=== PATIENT | female | born 1940 | race Caucasian/White ===

== ENCOUNTER → 2016-09-21 | Outpatient (CLI) | payer OTHER ==
[~2016-09-21] MED LIST: BENADRYL25 M3 PO; BP PILL; CALCIUM PO; FAMOTIDINE20 MG PO; K-TAB ER20 MEQ PO; LASIX20 MG PO; LOVENOX100 MG/1 M SUBQ; METOPROLOL SUCC25 MG PO; MULTIVITAMIN1 UDCAP PO; NABUMETONE; NEXIUM; NORVASC2.5 MG PO; OMEPRAZOLE40 M1 PO; PAROXETINE HCL10 MG PO; PAROXETINE HCL20 M1 PO; PAXIL; PRAVASTATIN SOD20 MG PO; TRIAMTERENE-HC1 EACH PO; VITAMIN D34000 UNIT PO; XARELTO15 MG PO; ZYRTEC
--- NOTE | ~2016-09-21 | HP ---
Unit #: [id number] #: [id number] Patient: MADIHA RAMIREZ [id number] [facility] [address] [place], [place] [address] [id number] O MR#: [id number] NAME: MADIHA RAMIREZ ROOM: Age: 76 Sex: F Admission Date: 09/21/2016 : 1940 Attending Physician: Gerson Buckner M.D. Primary Care Physician: Aaliyah Garcia M.D. HISTORY AND PHYSICAL REASON FOR CONSULTATION Preoperative evaluation. HISTORY OF PRESENT ILLNESS The patient is a 76-year-old female with a past medical history of hypertension, hyperlipidemia, paroxysmal atrial fibrillation, chronic anticoagulation, chronic kidney disease, borderline diabetes, depression, GERD, back pain, melanoma, arthritis, who is being seen in the preoperative area for the above. The patient states that she has had right knee pain for more than five years. She states that it has been gradual in onset. She has had injections as well as physical therapy that is no longer helping. 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 She is scheduled for right total knee arthroplasty on October 05, 2016. Regarding the patient's chronic medical conditions, she does have paroxysmal atrial fibrillation and is on chronic anticoagulation with Xarelto. She was seen by Dr. Jauregui on August 24, 2016, for cardiac clearance. Please see his dictated note. He also, per my conversation with the patient, told her to stop taking Xarelto on September 29. She will then transition to Lovenox. The patient is also seeing Dr. Jones for possible obstructive sleep apnea. She is scheduled for a sleep study on September 26. Regarding the patient's other chronic medical conditions, she states that she has been taking her medications as prescribed. She does have chronic kidney disease, stage 3, and sees Dr. Drake. PAST MEDICAL HISTORY 1. Admission to [facility] November 10 through the 2015 for left total knee arthroplasty. She developed atrial fibrillation with rapid ventricular response postoperatively. Additionally, she had low oxygen saturation with sleeping. She was seen by both cardiology and pulmonary during that admission. 2. Paroxysmal atrial fibrillation on chronic anticoagulation with Xarelto, followed by Dr. Jauregui. 3. Hypertension. 4. Hyperlipidemia. 5. Osteoarthritis. 6. Obesity with a BMI of 42. 7. "Borderline diabetes." The patient does not take any medication. Unit #: [id number] #: [id number] Patient: MADIHA RAMIREZ She doesn't routinely check her blood sugars. 8. Depression. 9. GERD. 10. Chronic low back pain. 11. Melanoma of the upper extremities, status post excision. 12. Chronic kidney disease, stage 3, followed by Dr. Drake. 13. Possible obstructive sleep apnea. PAST SURGICAL HISTORY 1. Cholecystectomy. 2. Parathyroid surgery. 3. Left total knee arthroplasty. 4. Hernia repair. SOCIAL HISTORY The patient quit smoking in 1967. She states that she smoked for about four years. She currently lives with her . She reports occasional alcohol use. She volunteers at a school. She typically walks without assistance. FAMILY HISTORY Notable for her mother dying at the age of 82. Her dad at the age of 75 of lung cancer. ALLERGIES Oxycodone, Relafen. HOME MEDICATIONS 1. Paroxetine 10 mg daily. 2. Pravastatin 20 mg daily. 3. Benadryl 25 mg q.8 hours. 4. Famotidine 20 mg daily. 5. Xarelto 15 mg daily. 6. Lasix 20 mg daily. 7. Potassium 20 mEq daily. 8. Metoprolol 12.5 mg daily. 9. Norvasc 2.5 mg daily. REVIEW OF SYSTEMS A complete review of systems is negative except as indicated in the HPI. The patient states that she does have dyspnea on exertion when walking up the stairs. This has been going on for about one to two years. She also reports paroxysmal nocturnal dyspnea again for the past two to three years. She denies any orthopnea. No change in her weight. She does have lower extremity swelling. It is not a new problem. Per cardiology consultation note from November 11, 2015, the patient had a stress test on January 03, 2014, at [facility] with a normal ejection fraction of 58%. There was also a 2D echocardiogram January 03, 2014, again at [facility] office showing ejection fraction of 55% to 60% with trace mitral regurgitation and mild tricuspid regurgitation. DIAGNOSTIC STUDIES CARDIOVASCULAR: EKG from August 24, 2016, showed sinus bradycardia with a rate of 50 beats/minute. LABORATORY: Complete blood count notable for hemoglobin and hematocrit of 11.7 and 37.1 respectively. INR is 1.3. Unit #: [id number] #: [id number] Patient: MADIHA RAMIREZ Comprehensive metabolic panel notable for BUN and creatinine of 35 and 1.4 respectively, alkaline phosphatase is 112, albumin is 3.3. Urinalysis is essentially negative. PHYSICAL EXAMINATION VITAL SIGNS: Temperature is 97.6, pulse 50, respirations 16, blood pressure 147/87. Oxygen saturation 94% on room air. GENERAL: The patient is a very pleasant female who is awake and alert, in no acute distress. HEENT: The head is atraumatic. Mucous membranes are moist. NECK: Supple. Trachea is midline. CARDIOVASCULAR: Regular rate and rhythm. LUNGS: Clear to auscultation bilaterally with no increased work of breathing. ABDOMEN: Soft, nontender, with bowel sounds present in all four quadrants. EXTREMITIES: Trace edema. NEURO: The patient is awake and alert. She follows commands. PSYCH: Mood and affect are normal. The patient is cooperative. SKIN: Skin of examined areas is warm and dry. ASSESSMENT The patient is a 76-year-old female with: 1. Preoperative evaluation for right total knee arthroplasty. 2. Hypertension. 3. Hyperlipidemia. 4. Paroxysmal atrial fibrillation, on chronic anticoagulation with Xarelto. 5. Chronic kidney disease, stage 3, followed by Dr. Drake. 6. Borderline diabetes. 7. Depression. 8. Gastroesophageal reflux disease. 9. Low back pain. 10. History of melanoma, status post excision. 11. Obesity with a BMI of 42. 12. Increased risk of obstructive sleep apnea, scheduled for sleep study this month. 13. Sinus bradycardia. 14. Former smoker. PLAN 1. Regarding preoperative evaluation, the patient's revised Prasad Cardiac Risk Index is low based on the information available. She has seen cardiology and has been cleared. Of note, the patient's EKG showed sinus bradycardia with a rate of 50 beats/minute. That was at Dr. Jauregui' office. She has danny cleared from his standpoint. She was advised to discontinue Xarelto on September 29 and will then will on Lovenox. Additionally, pulmonary clearance is pending from Dr. Jones. She is scheduled for a sleep study. 2. Regarding chronic kidney disease, the patient sees Dr. Drake. She appears to be around her baseline creatinine of 1.4, stage. 3. Borderline diabetes: I have ordered a hemoglobin A1c. The patient may need low dose sliding scale insulin with Accu-Cheks postoperatively. 4. Regarding increased risk of obstructive sleep apnea, the patient does have a sleep study scheduled. I have also ordered obstructive sleep apnea protocol postoperatively. Unit #: [id number] #: [id number] Patient: MADIHA RAMIREZ Thank you very much for the consultation. Dictated by Emily Curry M.D. DIANNE/venita TD: 09/21/2016 12:13 JOB #: [id number] HISTORY AND PHYSICAL Page 1 of 1 X Emily Curry MD X HISTORY AND PHYSICAL
--- NOTE | ~2016-09-21 | CR63 ---
[facility] A Service of [facility] & [facility] RADIOLOGY TEXT RESULTS PATIENT: MADIHA RAMIREZ LOCATION: [facility] : 42 UNIT #: [id number] AGE: [address]: Gerson Buckner MD SEX: F ORDER DR: [id number] [facility] [address] [place], [place] [address] [id number] O MR#: [id number] Acc #: [id number] NAME: MADIHA RAMIREZ : 1940 SEX: F STUDY DATE/TIME: 09/21/2016 9:55 UNIT: [facility] ROOM: STUDY DESCRIPTION: CR Chest 2 View Attending Physician: Gerson Buckner M.D. Ordering Physician: Gerson Buckner M.D. Primary Care Physician: Aaliyah Garcia M.D. MEDICAL IMAGING REPORT This report is preliminary unless electronic signature is present EXAM Chest, 09/21/2016, [facility]. HISTORY 76-year-old woman preop clearance for right total knee arthroplasty. Osteoarthritis right knee. COMPARISON Chest, 11/14/2015. TECHNIQUE Two-view chest demonstrates mild cardiomegaly and aortic ectasia. Hilar structures are preserved. Bilateral lungs are expanded and clear. IMPRESSION Mild stable cardiomegaly and aortic ectasia. No acute chest finding. Dictated by... Domo Panchal M.D. THIS IS AN ELECTRONICALLY VERIFIED REPORT Domo Panchal M.D. at 09/23/2016 8:10 AM RUDOLPH/elvis TD: 09/21/2016 10:18 JOB #: [id number] MEDICAL IMAGING REPORT Page 1 of 1 COPY
[2016-09-21 08:38] LABS: HEMATOCRIT 37.1 % (35.0-45.0); HEMOGLOBIN 11.7 gm/dL (12.0-16.0); MEAN CELL VOLUME 95.7 FL (83-96); MEAN CORPUSCULAR HEMOGLOBIN 30.2 PG (28-34); MEAN CORPUSCULAR HGB CONC 31.6 g/dL (30-36); MEAN PLATELET VOLUME 9.2 FL (6.5-11.5); RED BLOOD COUNT 3.88 X10e (3.90-5.30); RED CELL DISTRIBUTION WIDTH 13.8 % (11.0-15.5); WHITE BLOOD COUNT 4.2 X10e3 (4.0-10.5)
[2016-09-21 08:53] LABS: INR 1.3; PROTHROMBIN TIME (PATIENT) 13.6 SECONDS (9.6-11.5)
[2016-09-21 09:18] LABS: ALBUMIN SERUM 3.3 g/dL (3.5-5.0); BILIRUBIN,TOTAL 0.7 mg/dL (0.2-2.0); CALCIUM SERUM 9.9 mg/dL (8.4-10.2); CREATININE SERUM 1.4 mg/dL (0.6-1.4); GLOM FILT RATE Estimated 36.9 mL/min (>60); POTASSIUM 4.1 mmol/L (3.5-5.1); PROTEIN TOTAL SERUM 6.8 g/dL (6.0-8.3)
[2016-09-21 10:37] LABS: URINE APPEARANCE CLEAR; URINE BILIRUBIN NEG (NEG); URINE BLOOD NEG (NEG); URINE COLOR YELLOW; URINE GLUCOSE NEG (NEG); URINE KETONE NEG (NEG); URINE LEUKOCYTE ESTERASE NEG (NEG); URINE NITRATE NEG (NEG); URINE PROTEIN NEG (NEG); URINE SPECIFIC GRAVITY 1.008 (1.003-1.035); URINE UROBILINOGEN 0.2 MG/DL (NEG)
[2016-09-21 10:43] LABS: URINE SOURCE CLEAN CATCH
[2016-09-21 10:54] LABS: CULTURE INDICATED? NO
== END | disposition home or self-care (01) ==
LOC: CAMB 07:37
PROVIDERS: Orthopaedic Surgery
DX: Z01.818 Encounter for other preprocedural examination (principal); M17.11 Unilateral primary osteoarthritis, right knee; I12.9 Hypertensive chronic kidney disease with stage 1 through stage 4 chronic kidney disease, or unspecified chronic kidney disease; N18.3 Chronic kidney disease, stage 3 (moderate); E78.5 Hyperlipidemia, unspecified; I48.0 Paroxysmal atrial fibrillation; R73.03 Prediabetes; F32.9 Major depressive disorder, single episode, unspecified; K21.9 Gastro-esophageal reflux disease without esophagitis; E66.9 Obesity, unspecified; G47.33 Obstructive sleep apnea (adult) (pediatric); R00.1 Bradycardia, unspecified; I51.7 Cardiomegaly; Z87.81 Personal history of (healed) traumatic fracture; I77.819 Aortic ectasia, unspecified site
CPT/HCPCS: 36415; 71020; 80053; 81003; 83036; 85027; 85610; 86850; 86900; 86901; 87070

== ENCOUNTER → 2016-10-28 | Outpatient (CLI) | payer OTHER ==
[2016-10-28 08:26] LABS: HEMATOCRIT 36.5 % (35.0-45.0); HEMOGLOBIN 11.6 gm/dL (12.0-16.0); MEAN CORPUSCULAR HEMOGLOBIN 30.3 PG (28-34); MEAN CORPUSCULAR HGB CONC 31.8 g/dL (30-36); MEAN PLATELET VOLUME 8.8 FL (6.5-11.5); RED BLOOD COUNT 3.84 X10e (3.90-5.30); RED CELL DISTRIBUTION WIDTH 13.7 % (11.0-15.5)
[2016-10-28 08:30] LABS: URINE APPEARANCE CLEAR; URINE BILIRUBIN NEG (NEG); URINE BLOOD NEG (NEG); URINE COLOR YELLOW; URINE GLUCOSE NEG (NEG); URINE KETONE NEG (NEG); URINE LEUKOCYTE ESTERASE 1+ (NEG); URINE NITRATE NEG (NEG); URINE PROTEIN NEG (NEG); URINE SPECIFIC GRAVITY 1.014 (1.003-1.035); URINE UROBILINOGEN 0.2 MG/DL (NEG)
[2016-10-28 08:32] LABS: CULTURE INDICATED? YES; URBCS1 AUWI 0-2 /[HPF] (0-2); URINE BACTERIA AUWI 1+ (NEGATIVE); URINE SQUAMOUS EPITHELIAL CELL FEW /[HPF]
[2016-10-28 08:42] LABS: INR 1.2; PROTHROMBIN TIME (PATIENT) 13.3 SECONDS (10.0-11.7)
[2016-10-28 09:29] LABS: ALBUMIN SERUM 3.3 g/dL (3.5-5.0); BILIRUBIN,TOTAL 0.7 mg/dL (0.2-2.0); BUN/CREATININE RATIO 25.33; CREATININE SERUM 1.5 mg/dL (0.6-1.4); POTASSIUM 4.2 mmol/L (3.5-5.1); PROTEIN TOTAL SERUM 6.8 g/dL (6.0-8.3)
== END | disposition home or self-care (01) ==
LOC: CAMB 10-21 08:00
PROVIDERS: Orthopaedic Surgery
DX: Z01.812 Encounter for preprocedural laboratory examination (principal); M17.11 Unilateral primary osteoarthritis, right knee; E11.9 Type 2 diabetes mellitus without complications; I10 Essential (primary) hypertension; K21.9 Gastro-esophageal reflux disease without esophagitis; I48.91 Unspecified atrial fibrillation; G47.30 Sleep apnea, unspecified; E78.5 Hyperlipidemia, unspecified; N18.9 Chronic kidney disease, unspecified; C43.9 Malignant melanoma of skin, unspecified
CPT/HCPCS: 36415; 80053; 81003; 83036; 85027; 85610; 86850; 86900; 86901; 87070; 87086

== ENCOUNTER 2016-11-02 07:01 | Inpatient (IN) | payer OTHER ==
--- NOTE | ~2016-11-02 | CO ---
Unit #: [id number] #: [id number] Patient: MADIHA RAMIREZ [id number] [facility] [address] [place], [place] [address] [id number] I MR#: [id number] NAME: MADIHA RAMIREZ ROOM: 459 Age: 76 Sex: F Admission Date: 11/02/2016 : 1940 Attending Physician: Gerson Buckner M.D. Primary Care Physician: Aaliyah Garcia M.D. Consultation Date: 11/04/2016 CONSULTATION REPORT REASON FOR CONSULTATION Atrial fibrillation. HISTORY OF PRESENT ILLNESS This is a 76-year-old white male known to Dr. Neftali Jauregui, with a past medical history of hypertension, hyperlipidemia, prediabetes, obesity, obstructive sleep apnea, recently placed on CPAP and osteoarthritis. The patient was seen at [facility] in 11/2015 after a left total knee replacement. She developed new onset atrial fibrillation after surgery, but converted to sinus rhythm with medications. She was discharged with Coumadin, but was then changed to Xarelto. Two-dimensional echocardiogram was completed at that time and revealed an ejection fraction of 50% with mild mitral and tricuspid regurgitation. She previously had a normal stress test on 01/03/2017. She presented to the hospital on 11/02/2016 for an elective right total knee replacement due to osteoarthritis. She underwent the procedure with no complications. She was transferred to the surgical floor. She was in sinus rhythm, but then went into atrial fibrillation with a rapid ventricular response. She was placed on an amiodarone drip and she converted to sinus rhythm. She does have a history of parathyroid gland removal with some mildly abnormal TSH levels. Her amiodarone was discontinued. Cardiology was consulted for further evaluation. The patient denies any dizziness, palpitations or syncope. There are no reports of chest pain or shortness of breath. She has had some chronic lower extremity edema, which she contributes to her chronic kidney disease. She is on Lasix at home. She is currently resting comfortably on exam. Telemetry currently reveals sinus rhythm. PAST MEDICAL HISTORY 1. Previous admission to [facility] 11/2015 for a left total knee replacement, new onset atrial fibrillation with conversion to sinus rhythm with medications, and hypoxia thought to be related to obstructive sleep apnea. 2. Two-dimensional echocardiogram 11/14/2015 was a technically difficult study. Ejection fraction was 50%. Mild septal hypokinesis. Mildly dilated left atrium. Mild mitral and tricuspid regurgitation. Right ventricular systolic pressure 33 mCi. 3. Normal stress test 01/03/2014. 4. Paroxysmal atrial fibrillation as noted above. On chronic anticoagulation with Xarelto. 5. Hypertension. 6. Hyperlipidemia. 7. Prediabetes. Unit #: [id number] #: [id number] Patient: MADIHA RAMIREZ 8. Chronic kidney disease stage 3. 9. Gastroesophageal reflux disease. 10. Osteoarthritis. 11. Depression. 12. Reformed tobacco abuse. PAST SURGICAL HISTORY 1. Cholecystectomy. 2. Parathyroid gland excision. 3. Left total knee replacement. SOCIAL HISTORY The patient lives in a private residence with her . She quit smoking in 1967. She drinks alcohol on rare occasions. There are no reports of illicit drug use. FAMILY HISTORY Negative for coronary artery disease. ALLERGIES Oxycodone, nabumetone. HOME MEDICATIONS 1. Pravastatin 20 mg at bedtime. 2. Benadryl 25 mg p.o. q.8 h. p.r.n. allergies. 3. Pepcid 20 mg p.o. daily. 4. Xarelto 15 mg p.o. at bedtime. 5. Lasix 20 mg p.o. daily. 6. Potassium chloride 20 mEq p.o. daily. 7. Toprol succinate 12.5 mg p.o. daily. 8. Norvasc 2.5 mg p.o. daily. 9. Paroxetine 10 mg p.o. daily. 10. Lovenox sub cutaneous daily. Per medication reconciliation 11/02/2016. REVIEW OF SYSTEMS Ten point review of systems is negative except for details as noted above in history of present illness. PHYSICAL EXAMINATION GENERAL: This is a 76-year-old white female in no acute distress. VITALS: Temperature 98.4, pulse 61, blood pressure 135/66. SKIN: Warm and dry. NECK: Supple. No jugular vein distension. No hepatojugular reflux. No carotid upstrokes. No carotid bruits auscultated. LUNGS: Bilateral breath sounds. Good air entry throughout all lung fernando. Respirations even and unlabored. No rales, rhonchi or wheezes. HEART: S1 and S2. Regular rate and rhythm. No murmurs, rubs or gallops. ABDOMEN: Soft, nontender and nondistended. Positive bowel sounds auscultated four quadrants. No ascites noted. EXTREMITIES: Bilateral lower extremities have 2+ pitting edema. Dorsalis pedis and posterior tibial pulses 2+. Capillary refill less than 3 seconds. DIAGNOSTIC STUDIES LABORATORY: White blood cell count 7.8, hemoglobin 9, hematocrit 28.3, platelets 160, sodium 136, potassium 4.7, chloride 107, CO2 24, BUN 45, Unit #: [id number] #: [id number] Patient: SPINE,SISSY M creatinine 1.8, glucose 130, magnesium 2.2, AST 28, ALT 19, alkaline phosphatase 136. A1c 5.7, TSH 0.31, INR 1.1. CARDIOVASCULAR: Previous EKG revealed sinus rhythm. EKG on 11/03/2016 revealed atrial fibrillation with a rapid ventricular response of 133 beats per minute. No acute ST or T wave changes. QTC 434 msec. ASSESSMENT 1. Recurrent atrial fibrillation with rapid ventricular response, converted to normal sinus rhythm. 2. Obstructive sleep apnea on CPAP. 3. Obesity. 4. Status post right total knee replacement. 5. Anemia. 6. Hypertension. 7. Hyperlipidemia. 8. Prediabetes. 9. Chronic kidney disease stage 3. 10. Osteoarthritis. 11. Ejection fraction 50% with mild mitral and tricuspid regurgitation. Per two-dimensional echocardiogram 11/14/2015. 12. Normal stress test 01/2014. 13. Reformed tobacco abuse. PLAN 1. The patient presented to the hospital for an elective right knee replacement. She developed postoperative atrial fibrillation, but converted to sinus rhythm with medications. 2. Her metoprolol will be increased to help maintain sinus rhythm. No amiodarone will be prescribed due to history of parathyroid excision and borderline TSH levels. 3. She is currently on Coumadin and Lovenox per orthopedic surgery. She will be on Coumadin for 30 days and then switched back to home dosing of Xarelto. 4. There is no evidence of congestive heart failure or chest pain on exam. She does have some lower extremity edema which is thought to be secondary to amlodipine. Her amlodipine will be discontinued. 5. She has been instructed to lose weight by means of caloric reduction and increased exercise. She has been advised to be compliant with her CPAP mask. 6. She is okay to go to rehab today. She will need a followup with Dr. Jauregui in six to eight weeks. 7. She will be on Coumadin for 30 days and then her Xarelto will be resumed. 8. She has been instructed to follow up with Dr. Jauregui as an outpatient. 9. Coumadin and Lovenox per orthopedic surgery. She can be switched back to Xarelto after 30 days. Dictated by... Mónica Sun APRN for Ruby Damian TD: 11/04/2016 10:39 JOB #: [id number] Unit #: [id number] #: [id number] Patient: SPINE,MADIHA M CONSULTATION REPORT Page 1 of 1 X X CONSULTATION REPORT
--- NOTE | ~2016-11-02 | EKG ---
PATIENT: SPINE, SISSY UNIT #: [id number] Ventricular Rate: 133 BPM Atrial Rate: 131 BPM QRS Duration: 90 ms Q-T Interval: 292 ms QTC Calculation(Bezet): 434 ms Calculated R Dorris: 61 degrees Calculated T Dorris: 0 degrees Diagnosis Line: Atrial fibrillation with rapid ventricular Diagnosis Line: response Diagnosis Line: Cannot rule out Inferior infarct , age Diagnosis Line: undetermined Diagnosis Line: Abnormal ECG Diagnosis Line: When compared with ECG of 15-NOV-2015 05:53, Diagnosis Line: Atrial fibrillation has replaced Sinus rhythm Diagnosis Line: Vent. rate has increased BY 73 BPM Diagnosis Line: ST now depressed in Anterior leads Diagnosis Line: Nonspecific T wave abnormality, worse in Inferior Diagnosis Line: leads Diagnosis Line: Nonspecific T wave abnormality now evident in Diagnosis Line: Lateral leads Diagnosis Line: Confirmed by STIVEN AZAR MD ([id number]) on Diagnosis Line: 11/04/2016 8:22:06 AM INTERPRETING MD: NISSA SANDY
--- NOTE | ~2016-11-02 | DS ---
Unit #: [id number] #: [id number] Patient: MADIHA RAMIREZ [id number] [facility] [address] [place], [place] [address] [id number] I MR#: [id number] NAME: MADIHA RAMIREZ. ROOM: [facility] Age: 76 Sex: F Admission Date: 11/02/2016 : 1940 Discharge Date: 11/03/2016 Attending Physician: Gerson Buckner M.D. Primary Care Physician: Aaliyah Garcia M.D. DISCHARGE SUMMARY CONSULTING PHYSICIAN HIPS for medical management. REASON FOR ADMISSION Severe osteoarthritis of the left knee. PROCEDURE Left total knee arthroplasty. HOSPITAL COURSE The patient was admitted to [facility] with a history of severe osteoarthritis of the left knee. The patient had undergone the above procedure. The patient tolerated the procedure well with no apparent complications. Today her temperature is 98.1, blood pressure 114/61, heart rate 65, respirations 18. Her incision is healing well and neurovascular exam is intact. She had 2+ pulses in the lower extremities. The patient is planning on going to [facility] [place] later today. DISPOSITION [facility]. PERTINENT LABS PT was 11.9, INR 1.1, hemoglobin 9.2. MEDICATIONS PER MED REC LIST The patient will have the addition of Coumadin and Lovenox. Today will call with a PT/INR in the morning and will make further recommendations. The patient will be on Coumadin for four weeks and then her Xarelto will be continued for her atrial fibrillation. FOLLOWUP INSTRUCTIONS 1. The patient will need PT/INR done on 11/04/2016, 11/05/2016, and 11/06/2016 and then every Wednesday and thereafter, call the results to [phone]. 2. The patient will wear KEYA hose during the day and off at night. 3. The patient should not drive until seen by Dr. Buckner on Thursday, December 15, 2016. 4. The patient will participate in physical therapy including active and active assist range of motion, strict and progressive ambulation. Begin with a walker and progress to a cane as tolerated. 5. The patient will be on Coumadin for 30 days and then her Xarelto will be started back for her atrial fibrillation. Today she will get Coumadin 7.5 mg and Lovenox for bridging until her INR is equal to Unit #: [id number] #: [id number] Patient: SPINE,HUBERSY M greater than 2.1. Dictated by... Nicolás Wilsno P.A.-C- for Ruby Lee/ts TD: 11/03/2016 10:15 JOB #: [id number] DISCHARGE SUMMARY Page 1 of 1 X X DISCHARGE SUMMARY
--- NOTE | ~2016-11-02 | OR ---
Unit #: [id number] #: [id number] Patient: MADIHA RAMIREZ [id number] [address] [place], [place] [address] [id number] I MR#: [id number] NAME: MADIHA RAMIREZ ROOM: [facility] Date of Procedure: 11/02/2016 Admission Date: 11/02/2016 Surgeon: Gerson Buckner M.D. : 1940 Attending Physician: Gerson Buckner M.D. Primary Care Physician: Aaliyah Garcia M.D. OPERATIVE REPORT PREOPERATIVE DIAGNOSIS Primary localized osteoarthritis of the right knee. POSTOPERATIVE DIAGNOSIS Primary localized osteoarthritis of the right knee. PROCEDURE PERFORMED Right total knee. ASSISTANTS Katie and Sachin. ANESTHESIA Adductor canal block plus general. ESTIMATED BLOOD LOSS 100 mL. INDICATIONS FOR PROCEDURE This is a 76-year-old female with severe pain in her right knee that is getting progressively worse. The pain limits her walking and standing. X-rays show she has [id number] with subchondral sclerosis and periarticular osteophytes. Injections and anti-inflammatories gave no relief. DESCRIPTION OF PROCEDURE She was brought to the holding room, given 2 g of Kefzol. This will be continued postop, but discontinued within 23 hours from the start time of surgery. She was then given an adductor canal block and brought back to the operating room, given general anesthetic. Tourniquet was placed around the right thigh. The right leg was prepped and draped in a sterile fashion. Tourniquet was inflated to 250. A straight anterior skin incision was made. The subcutaneous dissected away and medial arthrotomy performed. Patella was slid to the side. Osteophytes were removed from the femur. The intramedullary guide was used and a 6-degree valgus cut was made on the distal femur. The femur was sized and found to be a size 3. The anterior-posterior cutting block was applied. Rotation was checked in the knee. Anterior and posterior cuts were made along with the chamfer cuts. Proximal tibial cut was made using a 0-degree cutting block. It was sized and found to be a size 3 as well. The remaining meniscal fragments were debrided. The posterior condylar osteophytes were removed. Posterior capsule was injected with ropivacaine mixture as was the periosteum. The trial tibia was applied with first an 8 and then a 10 Unit #: [id number] #: [id number] Patient: SPINE,SISSY M insert trial and these still had some instability present so we elected to go to a posterior cruciate substituting knee so the box cut was made and the trial femur was applied and then the posterior stabilized insert was applied 12.5 thick. This gave excellent stability in extension and flexion. Rotation of the tibia was marked and the external alignment guide showed appropriate alignment of the limb. The patella was grasped with 2 towel clips, measured 23 mm thick, cut smooth at 13 and a 38 patella was the appropriate size. The 3 drill holes were made. Trial patella applied and it tracked properly. We then removed all the trials. The drill and punch were used for the tibial tray. The knee was irrigated and dried while the cement was mixed and all 3 components were cemented simultaneously. Once again, it was a size 3 posterior stabilized femoral component, a size 3 tibial tray with a 38 patella. After the cement was hardened we chose a 12.5 insert size 3 posterior stabilized insert was positioned in the tray and the tourniquet was released. Hemostasis obtained. The wound was irrigated with Betadine and bacitracin and closed using 0 Ethibond in the arthrotomy, 0 and 2-0 in the subcu, and Prineo was used to close the skin. The rest of the ropivacaine mixture was injected prior to closing the wound. faculty research assistant, Nicolás Wilson, was present throughout the entire case. Dictated by... Ruby Lee/wilfred TD: 11/03/2016 02:33 JOB #: [id number] OPERATIVE REPORT Page 1 of 1 X Gerson Buckner MD X PROCEDURE OPERATIVE NOTE
[2016-11-02 07:34] LABS: URINE APPEARANCE CLOUDY; URINE BILIRUBIN NEG (NEG); URINE BLOOD NEG (NEG); URINE COLOR YELLOW; URINE GLUCOSE NEG (NEG); URINE KETONE NEG (NEG); URINE LEUKOCYTE ESTERASE 2+ (NEG); URINE NITRATE NEG (NEG); URINE PROTEIN NEG (NEG); URINE SPECIFIC GRAVITY 1.013 (1.003-1.035); URINE UROBILINOGEN 0.2 MG/DL (NEG)
[2016-11-02 07:38] LABS: CULTURE INDICATED? YES; U HYALINE CASTS AUWI 0-2 /[LPF]; URBCS1 AUWI 0-2 /[HPF] (0-2); URINE BACTERIA AUWI 1+ (NEGATIVE); URINE SOURCE CLEAN CATCH; URINE SQUAMOUS EPITHELIAL CELL MOD /[HPF]
[2016-11-02 07:45] LABS: PROTHROMBIN TIME (PATIENT) 11.3 SECONDS (10.0-11.7)
[2016-11-02 17:52] LABS: URINE SOURCE CATH
[2016-11-02 18:01] LABS: URINE APPEARANCE CLEAR; URINE BILIRUBIN NEG (NEG); URINE BLOOD NEG (NEG); URINE COLOR YELLOW; URINE GLUCOSE NEG (NEG); URINE KETONE NEG (NEG); URINE LEUKOCYTE ESTERASE NEG (NEG); URINE NITRATE NEG (NEG); URINE PROTEIN NEG (NEG); URINE SPECIFIC GRAVITY 1.012 (1.003-1.035); URINE UROBILINOGEN 0.2 MG/DL (NEG)
[2016-11-03 03:03] LABS: HEMOGLOBIN 9.2 gm/dL (12.0-16.0)
[2016-11-03 03:21] LABS: BUN/CREATININE RATIO 25.71; CALCIUM SERUM 9.3 mg/dL (8.4-10.2); CREATININE SERUM 1.4 mg/dL (0.6-1.4); GLOM FILT RATE Estimated 36.9 mL/min (>60); MAGNESIUM 1.7 mg/dL (1.6-3.0); POTASSIUM 4.7 mmol/L (3.5-5.1)
[2016-11-03 03:24] LABS: INR 1.1; PROTHROMBIN TIME (PATIENT) 11.9 SECONDS (10.0-11.7)
[2016-11-04 02:51] LABS: HEMATOCRIT 28.3 % (35.0-45.0); MEAN CELL VOLUME 95.1 FL (83-96); MEAN CORPUSCULAR HEMOGLOBIN 30.3 PG (28-34); MEAN CORPUSCULAR HGB CONC 31.9 g/dL (30-36); MEAN PLATELET VOLUME 9.3 FL (6.5-11.5); RED BLOOD COUNT 2.97 X10e (3.90-5.30); RED CELL DISTRIBUTION WIDTH 14.1 % (11.0-15.5); WHITE BLOOD COUNT 7.8 X10e3 (4.0-10.5)
[2016-11-04 03:01] LABS: INR 1.1; PROTHROMBIN TIME (PATIENT) 12.3 SECONDS (10.0-11.7)
[2016-11-04 03:12] LABS: CALCIUM SERUM 9.5 mg/dL (8.4-10.2); CREATININE SERUM 1.8 mg/dL (0.6-1.4); GLOM FILT RATE Estimated 27.3 mL/min (>60); MAGNESIUM 2.2 mg/dL (1.6-3.0); POTASSIUM 4.7 mmol/L (3.5-5.1)
== END 2016-11-04 13:50 | DRG 470 ==
LOC: CSUR 07:01 → CPACUOF 08:00 → CSUR 08:58 → CPACUOF 08:58 → CSUR 09:00 → CPACUOF 13:50 → C4B 13:50
PROVIDERS: Internal Medicine; Nurse Practitioner; Orthopaedic Surgery
PROC: 0SRC0J9 Replacement of Right Knee Joint with Synthetic Substitute, Cemented, Open Approach (ICD-10-PCS; principal; 2016-11-02 09:00)
DX: M17.12 Unilateral primary osteoarthritis, left knee (principal); Z68.41 Body mass index [BMI] 40.0-44.9, adult; N18.3 Chronic kidney disease, stage 3 (moderate); R00.1 Bradycardia, unspecified; I48.91 Unspecified atrial fibrillation; K21.9 Gastro-esophageal reflux disease without esophagitis; G47.33 Obstructive sleep apnea (adult) (pediatric); E78.5 Hyperlipidemia, unspecified; Z87.891 Personal history of nicotine dependence; I12.9 Hypertensive chronic kidney disease with stage 1 through stage 4 chronic kidney disease, or unspecified chronic kidney disease; Z90.49 Acquired absence of other specified parts of digestive tract; R73.03 Prediabetes; Z96.652 Presence of left artificial knee joint; E66.01 Morbid (severe) obesity due to excess calories
CPT/HCPCS: 80048; 81003; 82947; 83735; 84443; 85014; 85018; 85027; 85610; 87086; 93005; 94760; 97110; 97116; 97161; C1713; C1776; G8978-GP; G8979-GP; G8980-GP; J0131; J0171; J0282; J0690; J0735; J1100; J1650; J1885; J2250; J2405; J2795; J3010; J3475